=== PATIENT | male | born 1955 | race Caucasian/White ===

== ENCOUNTER 2022-08-15 05:14 | Emergency (ER) | payer OTHER ==
[2022-08-15] MEDS ORDERED: IBUPROFEN 600 MG TABLET (FP) PO ONE ×2 (06:36→06:38)
[2022-08-15 06:40] VITALS: BP 146/79; PULSE 75; RESP 18; TEMP 97.6; BMI 36.2
== END 2022-08-15 06:42 | disposition home or self-care (01) ==
LOC: JER 05:14
DX: M70.52 Other bursitis of knee, left knee (principal)
CPT/HCPCS: 73560-TC-LT-FY; 99283-25